=== PATIENT | female | born 1930 | race Caucasian/White ===

== ENCOUNTER 2017-10-03 01:04 | Emergency (ER) | payer OTHER ==
[~2017-10-03] VITALS: Ht 162.6 cm; Wt 58.1 kg
--- NOTE | 2017-10-03 01:13 | ED UPPER/LOWER EXTREMITY COMPL ---
History of Present Illness General Chief Complaint: Lower Extremity Problems Stated Complaint: LOWER EXTREMITY,AND LEFT ARM SWELLING Source: patient, EMS, W10 Exam Limitations: dementia Vital Signs & Intake/Output Vital Signs & Intake/Output Vital Signs Date Time Temp Pulse Resp B/P B/P Pulse O2 O2 Flow FiO2 Mean Ox Delivery Rate 10/03 0724 97.5 76 18 140/64 92 Nasal 2.0L Cannula 10/03 05 97.0 70 18 145/68 98 Room Air 10/03 0132 96.7 65 16 128/74 98 Nasal 2.0L Cannula Triage Nurses Notes Reviewed? yes Onset: Gradual Duration: unknown duration Timing: recent history Severity: mild Pain/Injury Location: Left: Elbow. Method of Injury: unknown Associated Symptoms: swelling HPI: 87 YO woman w/ dementia, g-tube, difficult historian, presents from [facility] with left arm swelling of uncertain duration. Ms. Ramos states that she no recollection of how long her arm has been swollen. She notes no pain or discomfort. (Shari GOMEZ,Pancho Luque) Past History Travel History Traveled to [place] past 21 day No Medical History Any Pertinent Medical History? see below for history Neurological: dementia Surgical History Surgical History: none Family History Hx Contributory? No (Shari GOMEZ,Pancho Luque) Review of Systems Review of Systems Constitutional: Reports: no symptoms. EENTM: Reports: no symptoms. Respiratory: Reports: no symptoms. Cardiovascular: Reports: no symptoms. Gastrointestinal/Abdominal: Reports: no symptoms. Genitourinary: Reports: no symptoms. Musculoskeletal: Reports: no symptoms. Skin: Reports: no symptoms. Neurological/Psychological: Reports: no symptoms. Hematologic/Endocrine: Reports: no symptoms. Immunological: Reports: no symptoms. All Other Systems: Reviewed and Negative (Shari GOMEZ,Pancho Luque) Physical Exam Physical Exam General Appearance: well developed/nourished, mild distress Head: atraumatic Eyes: Bilateral: normal appearance. Ears, Nose, Throat: normal pharynx, normal ENT inspection, hearing grossly normal Neck: normal inspection, supple Cardiovascular/Respiratory: regular rate/rhythm Back: normal inspection Elbow Left: diffuse swelling in left elbow and humerus, no warmth/erythema/ tenderness. 2+distal pulses, ROM is normal. light touch normal. Skin: intact, normal color, warm/dry Lymphatic: no anterior cervical belem (Shari GOMEZ,Pancho Luque) Progress Differential Diagnosis: contusion, DVT, fracture, sprain Plan of Care: Orders Procedure Date/time Status Heart Healthy Diet 10/03 B Active D-DIMER 10/03 112 Complete COMPREHENSIVE METABOLIC PANEL 10/03 112 Complete CBC WITHOUT DIFFERENTIAL 10/03 112 Complete Laboratory Tests 10/03/17 0141: Anion Gap 9, Estimated GFR > 60, BUN/Creatinine Ratio 18.3, Glucose 83, Calcium 8.5, Total Bilirubin 0.2, AST 13 L, ALT 15, Alkaline Phosphatase 121, Total Protein 5.1 L, Albumin 2.4 L, Globulin 2.7, Albumin/Globulin Ratio 0.9 L, D- Dimer High Sensitivty 646 H, CBC w Diff NO MAN DIFF REQ, RBC 3.31 L, MCV 91.6, MCH 29.6, MCHC 32.3 L, RDW 15.6 H, MPV 7.4, Gran % 70.1, Lymphocytes % 20.8, Monocytes % 7.5, Eosinophils % 1.2, Basophils % 0.4, Absolute Granulocytes 6.6 H, Absolute Lymphocytes 2.0, Absolute Monocytes 0.7 H, Absolute Eosinophils 0.1 , Absolute Basophils 0 Diagnostic Imaging: Viewed by Me: Radiology Read. Discussed w/RAD: Radiology Read. Radiology Impression: PATIENT: BRIANNA RAMOS PRESENT AGE: 87 PATIENT ACCOUNT NO: [id number] : [birth year] LOCATION: [facility] ORDERING PHYSICIAN: Pancho Mccarthy MD SERVICE DATE: 10/03/17 EXAM TYPE: RAD - XRY-HUMERUS, LEFT EXAMINATION: XR HUMERUS, LEFT CLINICAL INFORMATION: Left arm swelling COMPARISON: None TECHNIQUE: AP and lateral views of the left humerus. FINDINGS: No acute fracture is seen. Osseous alignment appears anatomic. Soft tissue calcification is noted lateral to the proximal humerus, suspicious for calcific rotator cuff tendinopathy. Additional soft tissue calcification is noted at the lateral elbow. There is suspected soft tissue swelling adjacent to the distal humerus. IMPRESSION: No acute osseous findings. Soft tissue swelling adjacent to the distal humerus. Suspected calcific rotator cuff tendinopathy. DICTATED BY: Pedrito Hussein MD DATE/TIME DICTATED:10/03/17143 CATHODE RAY TUBE ASSEMBLER:RAD.LINDSEY DATE/TIME TRANSCRIBED:143 CONFIDENTIAL, DO NOT COPY WITHOUT APPROPRIATE AUTHORIZATION. < Electronically signed in Other Vendor System> SIGNED BY: Pedrito Hussein MD 10/03/17149 Hand-Off Endorsed To: Sincree Leon MD Endorsed Time: 699 Pending: ultrasound Comments: pt awaiting u/s of left arm to assess for dvt. (Pancho Mccarthy MD) Radiology Impression: PATIENT: BRIANNA RAMOS PRESENT AGE: 87 PATIENT ACCOUNT NO: [id number] : [birth year] LOCATION: [facility] ORDERING PHYSICIAN: Pancho Mccarthy MD SERVICE DATE: 10/03/17 EXAM TYPE: US - US-UNILATERAL VENOUS DOPPLER EXAMINATION: US VENOUS ULTRASOUND WITH DOPPLER UPPER EXTREMITY, LEFT CLINICAL INFORMATION: Left arm swelling. Assess for DVT. COMPARISON: Radiograph left humerus 10/03/2017. TECHNIQUE: Ultrasound of the upper extremity is limited to the internal jugular, subclavian , and upper axillary vein as patient declined additional imaging. Compression sonography and color and pulse Doppler performed. FINDINGS: Respiratory variation, normal compression, and augmented flow are noted within the limits of the exam: Left internal jugular, left subclavian, and upper left axillary vein. The patient declined additional imaging. IMPRESSION: Abbreviated exam at patient request. Only the left internal jugular, left subclavian, and upper left axillary vein are evaluated and are unremarkable. The remainder of the left upper extremity is not imaged. DICTATED BY: Tam Gregory MD DATE/TIME DICTATED:10/03/17899 CATHODE RAY TUBE ASSEMBLER:LORELEI DATE/TIME TRANSCRIBED:899 CONFIDENTIAL, DO NOT COPY WITHOUT APPROPRIATE AUTHORIZATION. < Electronically signed in Other Vendor System> SIGNED BY: Tam Gregory MD 10/03/17906 (Sincere Leon MD) Departure Departure Condition: Stable Clinical Impression Primary Impression: Left arm swelling Referrals: Naye Tate MD (PCP/Family) Departure Forms: Customer Survey General Discharge Information (Pancho Mccarthy MD) Departure Disposition: ACUTE REHAB FACILITY (Sincere Leon MD)
--- NOTE | 2017-10-03 01:50 | RADIOLOGY REPORT ---
EXAMINATION: XR HUMERUS, LEFT CLINICAL INFORMATION: Left arm swelling COMPARISON: None TECHNIQUE: AP and lateral views of the left humerus. FINDINGS: No acute fracture is seen. Osseous alignment appears anatomic. Soft tissue calcification is noted lateral to the proximal humerus, suspicious for calcific rotator cuff tendinopathy. Additional soft tissue calcification is noted at the lateral elbow. There is suspected soft tissue swelling adjacent to the distal humerus. IMPRESSION: No acute osseous findings. Soft tissue swelling adjacent to the distal humerus. Suspected calcific rotator cuff tendinopathy.
[2017-10-03 02:54] LABS: ABSOLUTE BASOPHIL COUNT 0 /CUMM (0.0-0.2); ABSOLUTE EOSINOPHIL COUNT 0.1 /CUMM (0.0-0.7); ABSOLUTE GRANULOCYTE CT 6.6 /CUMM (1.4-6.5); ABSOLUTE MONOCYTE COUNT 0.7 /CUMM (0.10-0.60); BASOPHIL % 0.4 % (0.0-2.0); EOSINOPHIL % 1.2 % (0-5); GRANULOCYTE % 70.1 % (42.2-75.2); HEMATOCRIT 30.3 % (37-47); MEAN CORPUSCULAR HGB 29.6 PG (27.0-31.0); MEAN CORPUSCULAR HGB CONC 32.3 G/DL (33.0-37.0); MEAN CORPUSCULAR VOLUME 91.6 FL (81.0-99.0); MEAN PLATELET VOLUME 7.4 FL (7.4-10.4); PLATELET COUNT 417 /CUMM (130-400); RBC DISTRIBUTION WIDTH 15.6 % (11.5-14.5); RED BLOOD CELL CT 3.31 /CUMM (4.20-5.40); WHITE BLOOD CELL COUNT 9.4 /CUMM (4.8-10.8)
[2017-10-03 07:24] VITALS: BP 140/64
--- NOTE | 2017-10-03 09:07 | ULTRASOUND REPORT ---
EXAMINATION: US VENOUS ULTRASOUND WITH DOPPLER UPPER EXTREMITY, LEFT CLINICAL INFORMATION: Left arm swelling. Assess for DVT. COMPARISON: Radiograph left humerus 10/03/2017. TECHNIQUE: Ultrasound of the upper extremity is limited to the internal jugular, subclavian, and upper axillary vein as patient declined additional imaging. Compression sonography and color and pulse Doppler performed. FINDINGS: Respiratory variation, normal compression, and augmented flow are noted within the limits of the exam: Left internal jugular, left subclavian, and upper left axillary vein. The patient declined additional imaging. IMPRESSION: Abbreviated exam at patient request. Only the left internal jugular, left subclavian, and upper left axillary vein are evaluated and are unremarkable. The remainder of the left upper extremity is not imaged.
== END 2017-10-03 09:40 ==
LOC: ERH 01:04
PROVIDERS: Pediatrics
DX: M79.89 Other specified soft tissue disorders (principal); F03.90 Unspecified dementia, unspecified severity, without behavioral disturbance, psychotic disturbance, mood disturbance, and anxiety
CPT/HCPCS: 73060-LT